=== PATIENT | female | born 1960 | race Caucasian/White ===

== ENCOUNTER → 2024-03-22 | Day surgery (SDC) | payer OTHER ==
[2024-03-19 09:52] LABS: ANION GAP 17.1 mmol/L (8-16); CALCIUM 9.1 mg/dL (8.4-10.2); CREATININE, SERUM 0.87 mg/dL (0.57-1.11); POTASSIUM 4.1 mmol/L (3.5-5.1)
[~2024-03-22] MED LIST: ASPIRIN81 MG PO; BUSPIRONE HCL10 MG PO; CRESTOR10 MG PO; FAMOTIDINE 20 MG/2 ML VIAL IV ONE; FARXIGA10 MG; FENTANYL CITRATE/PF 100MCG/2 ML INJ ONE; LIDOCAINE HCL 2% LOCAL INJ 5 ML SDV VIAL INJ ONE; LISINOPRIL10 MG PO; METFORMIN HCL500 MG PO; MIDAZOLAM HCL 2 MG/2 ML VIAL ONE; ONDANSETRON HCL INJ 2MG/ML 2ML 2 MG/ML VIAL ONE; PAROXETINE HCL20 MG PO; PHENYLEPHRINE HCL 1% 10 MG/ML VIAL ONE; PROPOFOL IV EMULSION 10 MG/ML 20 ML VIAL ONE; SODIUM CHLORIDE 0.9% 100 ML ONE; TYLENOL EXTRA500 MG PO; VITAMIN C500 MG PO; VITAMIN D32400 UNIT/
[2024-03-22] MEDS: CEFTRIAXONE 1 GM VIAL ONE (06:27)
[2024-03-22] MEDS: LACTATED RINGER'S 1,000 ML ONE (06:27)
[2024-03-22 08:00] VITALS: TEMP 97.4
[2024-03-22] MEDS: FENTANYL CITRATE/PF 100MCG/2 ML INJ ONE (08:13)
[2024-03-22 08:34] VITALS: BP 154/86; PULSE 79; RESP 18; O2SAT 95
== END | disposition home or self-care (01) ==
LOC: OR 05:29
PROVIDERS: ATTEND Urology
DX: N20.0 Calculus of kidney (principal); N13.1 Hydronephrosis with ureteral stricture, not elsewhere classified; G47.33 Obstructive sleep apnea (adult) (pediatric); E11.9 Type 2 diabetes mellitus without complications; I10 Essential (primary) hypertension; E78.5 Hyperlipidemia, unspecified; K21.9 Gastro-esophageal reflux disease without esophagitis; M06.9 Rheumatoid arthritis, unspecified; F41.9 Anxiety disorder, unspecified; Z88.2 Allergy status to sulfonamides; Z88.6 Allergy status to analgesic agent; Z91.040 Latex allergy status; Z01.810 Encounter for preprocedural cardiovascular examination; Z01.812 Encounter for preprocedural laboratory examination; Z01.818 Encounter for other preprocedural examination; Z79.84 Long term (current) use of oral hypoglycemic drugs; Z79.899 Other long term (current) drug therapy
CPT/HCPCS: 36415; 50590; 52332; 71046; 74018; 80048; 93005; C1758; C2617; J0696; J2003; J2250; J2371; J2405; J2704; J3010; J7050; J7121

== ENCOUNTER 2024-04-16 13:58 | Inpatient (IN) | payer OTHER ==
[~2024-04-16] VITALS: Ht 160 cm; Wt 90.3 kg
[~2024-04-16 13:58] MED LIST changes: -FAMOTIDINE 20 MG/2 ML VIAL IV ONE; -FENTANYL CITRATE/PF 100MCG/2 ML INJ ONE; -LIDOCAINE HCL 2% LOCAL INJ 5 ML SDV VIAL INJ ONE; -MIDAZOLAM HCL 2 MG/2 ML VIAL ONE; -ONDANSETRON HCL INJ 2MG/ML 2ML 2 MG/ML VIAL ONE; -PHENYLEPHRINE HCL 1% 10 MG/ML VIAL ONE; -PROPOFOL IV EMULSION 10 MG/ML 20 ML VIAL ONE; -SODIUM CHLORIDE 0.9% 100 ML ONE
[2024-04-16 15:22] VITALS: TEMP 98.4
[2024-04-16] MEDS ORDERED: ONDANSETRON HCL INJ 2MG/ML 2ML 2 MG/ML VIAL ONE (15:28)
[2024-04-16] MEDS ORDERED: SODIUM CHLORIDE 0.9% 1000ML 1,000 ML ONE (15:28)
[2024-04-16] MEDS: ONDANSETRON HCL INJ 2MG/ML 2ML 2 MG/ML VIAL IV STA (15:34)
[2024-04-16] MEDS: SODIUM CHLORIDE 0.9% 1000ML 1,000 ML IV ONE (15:34)
[2024-04-16 15:45] LABS: BASOPHILS # (AUTO) 0.1 (0.0-0.1); BASOPHILS % 0.6 % (0.0-1.0); EOSINOPHILS # (AUTO) 0.1 (0.0-0.4); HEMATOCRIT 42.6 % (34.2-44.1); HEMOGLOBIN 13.5 g/dL (12.0-16.0); LYMPHOCYTES # (AUTO) 1.7 (1.0-3.2); LYMPHOCYTES % 15.7 % (18.0-39.1); MEAN CORPUSCULAR HEMOGLOBIN 29.9 pg (28-32); MEAN CORPUSCULAR HGB CONC 31.7 g/dL (31-35); MEAN CORPUSCULAR VOLUME 94.2 fL (81-99); MONOCYTES # (AUTO) 0.9 (0.2-0.8); MONOCYTES % 8.8 % (4.4-11.3); NEUTROPHILS # (AUTO) 7.8 (2.1-6.9); NEUTROPHILS % 73.3 % (38.7-80.0); PLATELET COUNT 356 x10e3/uL (140-360); RED BLOOD COUNT 4.52 x10e6/uL (3.6-5.1); RED CELL DISTRIBUTION WIDTH 11.6 % (11.7-14.4); WHITE BLOOD COUNT 10.59 x10e3/uL (4.8-10.8)
[2024-04-16 15:54] LABS: ALBUMIN 3.5 g/dL (3.5-5.0); ALBUMIN/GLOBULIN RATIO 0.9 (0.8-2.0); ANION GAP 20.7 mmol/L (8-16); BILIRUBIN,TOTAL 0.3 mg/dL (0.2-1.2); CALCIUM 9.7 mg/dL (8.4-10.2); CREATININE, SERUM 1.03 mg/dL (0.57-1.11); POTASSIUM 3.7 mmol/L (3.5-5.1); TOTAL PROTEIN 7.6 g/dL (6.5-8.1)
[2024-04-16 16:45] LABS: BILIRUBIN,URINE SMALL (NEGATIVE); CLARITY,URINE CLOUDY (CLEAR); COLOR,URINE YELLOW (YELLOW); GLUCOSE, URINE 2+ (NEGATIVE); KETONES,URINE TRACE (NEGATIVE); LEUKOCYTE ESTERASE ,URINE SMALL (NEGATIVE); NITRITE,URINE NEGATIVE (NEGATIVE); PH,URINE 6 (5 - 7); PROTEIN,URINE DIPSTICK >=300 (NEGATIVE); URINE UROBILINOGEN 0.2 mg/dL (0.2 - 1)
[2024-04-16] MEDS: METOCLOPRAMIDE HCL 10 MG/2ML VIAL IV ONE (16:45)
[2024-04-16] MEDS: KETOROLAC TROMETHAMINE 30 MG/ML VIAL IV STA (16:46)
[2024-04-16 16:48] LABS: BACTERIA,URINE MANY /HPF; EPITHELIAL CELLS,URINE RARE /LPF; RBC,URINE >50 /HPF (0-5); WBC,URINE (MAN) >50 /HPF (0-5)
[2024-04-16] MEDS ORDERED: SODIUM CHLORIDE FLUSH 10 ML SYR INJ PRN (18:00)
[2024-04-16] MEDS ORDERED: ONDANSETRON HCL INJ 2MG/ML 2ML 2 MG/ML VIAL IV PRN (18:00)
[2024-04-16 19:52] VITALS: PULSE 102; RESP 19
[2024-04-16 20:00] VITALS: BP 157/80; PULSE 117; RESP 20; TEMP 98.7; O2SAT 96
[2024-04-16] MEDS ORDERED: HYDRALAZINE HCL 20 MG/ML VIAL IV PRN (20:30)
[2024-04-16] MEDS ORDERED: FAMOTIDINE 20 MG TAB PO PRN (20:30)
[2024-04-16] MEDS ORDERED: MELATONIN 5 MG TABLET PO PRN (20:30)
[2024-04-16] MEDS ORDERED: DEXTROSE 50% SYRINGE 50 ML IV PRN (20:30)
[2024-04-16 20:40] VITALS: BP 157/80; PULSE 117; RESP 20; TEMP 98.7; O2SAT 96
[2024-04-16 21:00] VITALS: BP 157/80; PULSE 117; RESP 20; TEMP 98.7; O2SAT 96
[2024-04-16] MEDS: INSULIN REGULAR, HUMAN 100 UNIT/1 ML SQ SCH (22:19)
[2024-04-16] MEDS: CRESTOR 10MG PO SCH (22:23)
[2024-04-16] MEDS: SODIUM CHLORIDE 0.9% 1000ML 1,000 ML IV SCH (22:24)
[2024-04-16] MEDS: KETOROLAC TROMETHAMINE 30 MG/ML VIAL IV PRN (23:24)
[2024-04-17 04:00] VITALS: BP 151/81; PULSE 121; RESP 18; TEMP 98.1; O2SAT 100
[2024-04-17 05:26] LABS: BASOPHILS % 0.4 % (0.0-1.0); EOSINOPHILS % 0.2 % (0.0-6.0); HEMATOCRIT 33.5 % (34.2-44.1); HEMOGLOBIN 11.2 g/dL (12.0-16.0); LYMPHOCYTES # (AUTO) 1.6 (1.0-3.2); LYMPHOCYTES % 15.5 % (18.0-39.1); MEAN CORPUSCULAR HEMOGLOBIN 29.6 pg (28-32); MEAN CORPUSCULAR HGB CONC 33.4 g/dL (31-35); MEAN CORPUSCULAR VOLUME 88.6 fL (81-99); MONOCYTES # (AUTO) 1.1 (0.2-0.8); MONOCYTES % 10.8 % (4.4-11.3); NEUTROPHILS # (AUTO) 7.4 (2.1-6.9); NEUTROPHILS % 72.5 % (38.7-80.0); PLATELET COUNT 290 x10e3/uL (140-360); RED BLOOD COUNT 3.78 x10e6/uL (3.6-5.1); RED CELL DISTRIBUTION WIDTH 11.6 % (11.7-14.4); WHITE BLOOD COUNT 10.14 x10e3/uL (4.8-10.8)
[2024-04-17 05:49] LABS: INR 0.98; PROTHROMBIN TIME 13.6 seconds (11.9-14.5)
[2024-04-17 05:50] LABS: PARTIAL THROMBOPLASTIN TIME 35.3 seconds (23.8-35.5)
[2024-04-17 06:03] LABS: ALBUMIN 2.7 g/dL (3.5-5.0); ALBUMIN/GLOBULIN RATIO 0.7 (0.8-2.0); ANION GAP 16.7 mmol/L (8-16); BILIRUBIN,TOTAL 0.3 mg/dL (0.2-1.2); CALCIUM 9.3 mg/dL (8.4-10.2); POTASSIUM 3.7 mmol/L (3.5-5.1); TOTAL PROTEIN 6.5 g/dL (6.5-8.1)
[2024-04-17 08:00] VITALS: BP 136/53; PULSE 107; RESP 18; TEMP 99.1; O2SAT 100
[2024-04-17] MEDS: LISINOPRIL 20 MG TAB PO SCH (09:20)
[2024-04-17] MEDS: BUSPIRONE HCL 10 MG TABLET PO SCH (09:20)
[2024-04-17] MEDS: LORAZEPAM 0.5 MG TAB PO ONE (09:20)
[2024-04-17] MEDS: PAROXETINE HCL 20 MG TAB PO SCH (09:20)
[2024-04-17] MEDS ORDERED: IOPAMIDOL 370 MG/ML 100 ML INFUS..BTL INJ ONE (10:54)
[2024-04-17 12:00] VITALS: BP 142/74; PULSE 109; RESP 18; TEMP 98.5; O2SAT 98
[2024-04-17] MEDS: METOPROLOL SUCCINATE 25 MG TAB XL PO SCH (13:40)
[2024-04-17 16:00] VITALS: BP 140/92; PULSE 113; RESP 18; TEMP 100.9; O2SAT 95
[2024-04-17 20:00] VITALS: BP 121/56; PULSE 104; RESP 20; TEMP 100.6; O2SAT 100
[2024-04-17 21:00] VITALS: BP 121/56; PULSE 104; RESP 20; TEMP 100.6; O2SAT 100
[2024-04-17] MEDS: INSULIN GLARGINE 100 UNITS/ML VIAL SQ SCH (21:42)
[2024-04-17] MEDS: ACETAMINOPHEN 325 MG TAB PO PRN (21:55)
[2024-04-18] VITALS (7 sets, daily range): BP systolic 115–139; BP diastolic 61–88; PULSE 72–102; RESP 16–19; TEMP 97.8–99.5; O2SAT 94–100
[2024-04-18] MEDS: ENOXAPARIN SOD INJ 40 MG/0.4 ML SYR SC SCH (08:52)
[2024-04-18] MEDS: LORAZEPAM 0.5 MG TAB PO PRN (09:57)
[2024-04-18 10:10] LABS: BASOPHILS # (AUTO) 0.1 (0.0-0.1); BASOPHILS % 0.4 % (0.0-1.0); EOSINOPHILS # (AUTO) 0.1 (0.0-0.4); EOSINOPHILS % 0.8 % (0.0-6.0); HEMATOCRIT 36.1 % (34.2-44.1); HEMOGLOBIN 11.2 g/dL (12.0-16.0); LYMPHOCYTES # (AUTO) 1.6 (1.0-3.2); LYMPHOCYTES % 13.2 % (18.0-39.1); MEAN CORPUSCULAR HEMOGLOBIN 29.4 pg (28-32); MEAN CORPUSCULAR VOLUME 94.8 fL (81-99); MONOCYTES # (AUTO) 0.9 (0.2-0.8); MONOCYTES % 7.3 % (4.4-11.3); NEUTROPHILS # (AUTO) 9.2 (2.1-6.9); NEUTROPHILS % 77.8 % (38.7-80.0); PLATELET COUNT 299 x10e3/uL (140-360); RED BLOOD COUNT 3.81 x10e6/uL (3.6-5.1); RED CELL DISTRIBUTION WIDTH 11.8 % (11.7-14.4); WHITE BLOOD COUNT 11.81 x10e3/uL (4.8-10.8)
[2024-04-18 10:42] LABS: ALBUMIN 2.5 g/dL (3.5-5.0); ALBUMIN/GLOBULIN RATIO 0.6 (0.8-2.0); ANION GAP 16.3 mmol/L (8-16); BILIRUBIN,TOTAL 0.4 mg/dL (0.2-1.2); CALCIUM 8.9 mg/dL (8.4-10.2); CREATININE, SERUM 0.9 mg/dL (0.57-1.11); TOTAL PROTEIN 6.9 g/dL (6.5-8.1)
[2024-04-18 10:46] LABS: POTASSIUM 3.3 mmol/L (3.5-5.1)
[2024-04-19] VITALS (9 sets, daily range): BP systolic 113–148; BP diastolic 44–77; PULSE 80–90; RESP 14–19; TEMP 97.7–99; O2SAT 97–100
[2024-04-19 07:57] LABS: BASOPHILS # (AUTO) 0.1 (0.0-0.1); BASOPHILS % 0.7 % (0.0-1.0); EOSINOPHILS # (AUTO) 0.2 (0.0-0.4); EOSINOPHILS % 1.9 % (0.0-6.0); HEMATOCRIT 33.8 % (34.2-44.1); HEMOGLOBIN 11.1 g/dL (12.0-16.0); LYMPHOCYTES % 22.6 % (18.0-39.1); MEAN CORPUSCULAR HEMOGLOBIN 29.4 pg (28-32); MEAN CORPUSCULAR HGB CONC 32.8 g/dL (31-35); MEAN CORPUSCULAR VOLUME 89.7 fL (81-99); MONOCYTES # (AUTO) 0.9 (0.2-0.8); MONOCYTES % 10.6 % (4.4-11.3); NEUTROPHILS # (AUTO) 5.6 (2.1-6.9); NEUTROPHILS % 63.5 % (38.7-80.0); PLATELET COUNT 297 x10e3/uL (140-360); RED BLOOD COUNT 3.77 x10e6/uL (3.6-5.1); RED CELL DISTRIBUTION WIDTH 11.7 % (11.7-14.4); WHITE BLOOD COUNT 8.75 x10e3/uL (4.8-10.8)
[2024-04-19 08:30] LABS: ALBUMIN 2.4 g/dL (3.5-5.0); ALBUMIN/GLOBULIN RATIO 0.6 (0.8-2.0); ANION GAP 14.7 mmol/L (8-16); BILIRUBIN,TOTAL 0.3 mg/dL (0.2-1.2); CALCIUM 9.2 mg/dL (8.4-10.2); CREATININE, SERUM 0.85 mg/dL (0.57-1.11); POTASSIUM 3.7 mmol/L (3.5-5.1); TOTAL PROTEIN 6.7 g/dL (6.5-8.1)
[2024-04-19] MEDS ORDERED: SEVOFLURANE INHAL SOLN 250 ML PEN BTL ONE (13:48)
[2024-04-19] MEDS ORDERED: LIDOCAINE HCL 2% LOCAL INJ 5 ML SDV VIAL INJ ONE (13:48)
[2024-04-19] MEDS ORDERED: PROPOFOL IV EMULSION 10 MG/ML 20 ML VIAL ONE (13:48)
[2024-04-19] MEDS ORDERED: FENTANYL CITRATE/PF 100MCG/2 ML INJ ONE (13:48)
[2024-04-19] MEDS ORDERED: ONDANSETRON HCL INJ 2MG/ML 2ML 2 MG/ML VIAL ONE (14:34)
[2024-04-19] MEDS ORDERED: FAMOTIDINE 20 MG/2 ML VIAL IV ONE (14:34)
[2024-04-19] MEDS: CIPROFLOXACIN 400 MG/D5W 200ML 200 ML IV SCH (17:11)
[2024-04-20 04:54] VITALS: BP 138/71; PULSE 84; RESP 18; TEMP 99; O2SAT 100
[2024-04-20 06:09] LABS: BASOPHILS % 0.5 % (0.0-1.0); EOSINOPHILS # (AUTO) 0.2 (0.0-0.4); EOSINOPHILS % 1.8 % (0.0-6.0); HEMATOCRIT 36.1 % (34.2-44.1); LYMPHOCYTES # (AUTO) 1.5 (1.0-3.2); LYMPHOCYTES % 18.3 % (18.0-39.1); MEAN CORPUSCULAR HEMOGLOBIN 29.6 pg (28-32); MEAN CORPUSCULAR HGB CONC 33.2 g/dL (31-35); MEAN CORPUSCULAR VOLUME 88.9 fL (81-99); MONOCYTES # (AUTO) 0.8 (0.2-0.8); MONOCYTES % 9.4 % (4.4-11.3); NEUTROPHILS # (AUTO) 5.7 (2.1-6.9); NEUTROPHILS % 69.6 % (38.7-80.0); PLATELET COUNT 344 x10e3/uL (140-360); RED BLOOD COUNT 4.06 x10e6/uL (3.6-5.1); RED CELL DISTRIBUTION WIDTH 11.4 % (11.7-14.4); WHITE BLOOD COUNT 8.21 x10e3/uL (4.8-10.8)
[2024-04-20 06:33] LABS: ALBUMIN 2.5 g/dL (3.5-5.0); ALBUMIN/GLOBULIN RATIO 0.5 (0.8-2.0); ANION GAP 17.5 mmol/L (8-16); BILIRUBIN,TOTAL 0.4 mg/dL (0.2-1.2); CALCIUM 8.8 mg/dL (8.4-10.2); CREATININE, SERUM 0.98 mg/dL (0.57-1.11); POTASSIUM 3.5 mmol/L (3.5-5.1); TOTAL PROTEIN 7.1 g/dL (6.5-8.1)
[2024-04-20] MEDS ORDERED: CIPRO500 MG PO (07:36)
[2024-04-20] MEDS ORDERED: KETOROLAC TROME10 MG PO (07:36)
[2024-04-20 08:00] VITALS: BP 131/65; PULSE 101; RESP 19; TEMP 98.2; O2SAT 99
[2024-04-20 09:21] VITALS: BP 131/65; PULSE 101; RESP 19; TEMP 98.2; O2SAT 99
== END 2024-04-20 10:23 | disposition home or self-care (01) | DRG 699 ==
LOC: ER 16:19 → ERHOLD 18:04 → MED/SURG 20:18
PROVIDERS: ADMIT Family Medicine Adult Medicine; ATTEND Family Medicine Adult Medicine
PROC: BT1D1ZZ Fluoroscopy of Right Kidney, Ureter and Bladder using Low Osmolar Contrast (ICD-10-PCS; 2024-04-19)
PROC: 0TC68ZZ Extirpation of Matter from Right Ureter, Via Natural or Artificial Opening Endoscopic (ICD-10-PCS; principal; 2024-04-19 14:10)
PROC: 0TP98DZ Removal of Intraluminal Device from Ureter, Via Natural or Artificial Opening Endoscopic (ICD-10-PCS; 2024-04-19 14:10)
DX: T83.592A Infection and inflammatory reaction due to indwelling ureteral stent, initial encounter (principal); I31.39 Other pericardial effusion (noninflammatory); N13.6 Pyonephrosis; I50.30 Unspecified diastolic (congestive) heart failure; I11.0 Hypertensive heart disease with heart failure; B95.2 Enterococcus as the cause of diseases classified elsewhere; Z46.6 Encounter for fitting and adjustment of urinary device; I16.0 Hypertensive urgency; E78.5 Hyperlipidemia, unspecified; E11.65 Type 2 diabetes mellitus with hyperglycemia; Z79.84 Long term (current) use of oral hypoglycemic drugs; R00.0 Tachycardia, unspecified; R31.0 Gross hematuria; K21.9 Gastro-esophageal reflux disease without esophagitis; K76.0 Fatty (change of) liver, not elsewhere classified; K44.9 Diaphragmatic hernia without obstruction or gangrene; E66.9 Obesity, unspecified; Z68.35 Body mass index [BMI] 35.0-35.9, adult; R63.4 Abnormal weight loss; F41.9 Anxiety disorder, unspecified; B96.5 Pseudomonas (aeruginosa) (mallei) (pseudomallei) as the cause of diseases classified elsewhere; Z87.891 Personal history of nicotine dependence; Y83.1 Surgical operation with implant of artificial internal device as the cause of abnormal reaction of the patient, or of later complication, without mention of misadventure at the time of the procedure; Y92.009 Unspecified place in unspecified non-institutional (private) residence as the place of occurrence of the external cause; Z79.899 Other long term (current) drug therapy
CPT/HCPCS: 36415; 71260; 74176; 74420; 80053; 81001; 82948; 84443; 85025; 85610; 85730; 87040; 87086; 87186; 88300; 93005; 93306; 96372; 99252; 99284; C1769; J0692; J0696; J1650; J1815; J1885; J2003; J2405; J2765; J7030; Q9967

== ENCOUNTER → 2024-06-05 | Outpatient (REF) | payer OTHER ==
[~2024-06-05] MED LIST changes: +CIPRO500 MG PO; +KETOROLAC TROME10 MG PO
== END ==
LOC: MAMMO 09:14
PROVIDERS: ATTEND Family Medicine Adult Medicine
DX: Z12.31 Encounter for screening mammogram for malignant neoplasm of breast (principal); Z13.820 Encounter for screening for osteoporosis
CPT/HCPCS: 77067; 77080

== ENCOUNTER → 2024-11-29 | Day surgery (SDC) | payer OTHER ==
[2024-11-26 10:32] LABS: EST GLOMERULAR FILTRATION RATE 59.0 ML/MIN (>=60)
[~2024-11-29] MED LIST changes: +ACETAMINOPHEN 1000 MG/100 ML 100 ML IV ONE; +B12 ACTIVE1000 MCG; +CEFTRIAXONE 1 GM VIAL ONE; +DEXAMETHASONE SOD PHOS INJ 4 MG/ML SDV ONE; +FENTANYL CITRATE/PF 100MCG/2 ML INJ ONE; +JARDIANCE25 MG PO; +LACTATED RINGER'S 1,000 ML ONE; +LEVOTHYROXINE50 MCG PO; +LIDOCAINE HCL 2% LOCAL INJ 5 ML SDV VIAL INJ ONE; +ONDANSETRON HCL INJ 2MG/ML 2ML 2 MG/ML VIAL ONE; +PHENYLEPHRINE HCL 1% 10 MG/ML VIAL ONE; +PROPOFOL IV EMULSION 10 MG/ML 20 ML VIAL ONE; +SEVOFLURANE INHAL SOLN 250 ML PEN BTL ONE; +SODIUM CHLORIDE 0.9% INJ 10 ML VIAL ONE; +TRICOR48 MG PO; +ZETIA10 MG PO
[2024-11-29 08:35] VITALS: BP 115/60; PULSE 89; RESP 17; O2SAT 98
== END | disposition home or self-care (01) ==
LOC: OR 05:20
PROVIDERS: ATTEND Urology
DX: N20.0 Calculus of kidney (principal); N39.0 Urinary tract infection, site not specified; R80.9 Proteinuria, unspecified; N13.30 Unspecified hydronephrosis; R81 Glycosuria; E11.9 Type 2 diabetes mellitus without complications; I10 Essential (primary) hypertension; E78.5 Hyperlipidemia, unspecified; E66.01 Morbid (severe) obesity due to excess calories; M19.90 Unspecified osteoarthritis, unspecified site; F41.9 Anxiety disorder, unspecified; Z91.040 Latex allergy status; Z88.6 Allergy status to analgesic agent; Z88.2 Allergy status to sulfonamides; Z01.810 Encounter for preprocedural cardiovascular examination; Z01.812 Encounter for preprocedural laboratory examination; Z01.818 Encounter for other preprocedural examination; Z79.82 Long term (current) use of aspirin; Z79.84 Long term (current) use of oral hypoglycemic drugs; Z79.899 Other long term (current) drug therapy; Z68.33 Body mass index [BMI] 33.0-33.9, adult; Z87.891 Personal history of nicotine dependence
CPT/HCPCS: 36415 ×2; 50590; 74018; 80048; 82948; 93005; J0131; J0696; J1100; J2003; J2371; J2405; J2704; J3010; J7121